=== PATIENT | female | born 1985 | race Caucasian/White ===

== ENCOUNTER → 2022-05-18 13:47 | Outpatient (CLI) | payer OTHER, SELFPAY ==
--- NOTE | ~2022-05-18 | CT_ITS ---
EXAMINATION: CT soft tissue neck w con DATE: 05/18/2022 14:14 INDICATION: Right posterior neck mass. TECHNIQUE: Computed tomography (CT) of the neck was performed with 75 mL Omnipaque-350 intravenous co ntrast. Automated exposure control and iterative reconstruction technique were employed. The dose-timothy gth product was 362.90 mGy-cm. COMPARISON: None FINDINGS: There is an aberrant right subclavian artery. There is 0% stenosis of the proximal internal carotid arteries relative to normal distal artery lumen diameters. There are nodules in the thyroid measuring up to 7 mm, likely not clinically significant. There is complete opacification of left fron kelly, ethmoid, and maxillary sinuses and near complete opacification of left sphenoid sinus. There is rightward deviation of the nasal septum. There is a 10 x 13 mm right occipital lymph node. IMPRESSION: 1. Mildly enlarged right occipital lymph node, likely reactive. Reviewed, dictated and finalized at location A.
== END ==
PROVIDERS: PCP Family Medicine; Visit Provider Surgery
DX: R22.1 Localized swelling, mass and lump, neck (principal)
CPT/HCPCS: 70491; Q9967

== ENCOUNTER → 2022-06-03 08:20 | Outpatient (CLI) | payer OTHER, SELFPAY ==
--- NOTE | ~2022-06-03 | US_ITS ---
Thyroid ultrasound. Clinical History: Thyroid nodule Findings: Real-time sonography of the thyroid gland was performed. The right lobe measures 5.3 x 1.7 x 1.6 cm. The left lobe measures 4.8 x 1.3 x 1.3 cm. The isthmus is 2 mm in AP diameter. There is a 6 mm hypoechoic nodule at the left mid to lower pole. There is an 8 mm hypoechoic nodule a t the right midpole. There is a 9 mm hypoechoic solid nodule at the right lower pole. Impression: Subcentimeter thyroid nodules, as detailed above. No dedicated follow-up required based on size crite robinson. Reviewed, dictated and finalized at location . Impression: Subcentimeter thyroid nodules, as detailed above. No dedicated follow-up requir ed based on size criteria.
== END ==
PROVIDERS: PCP Family Medicine; Visit Provider Nurse Practitioner Gerontology
DX: E04.2 Nontoxic multinodular goiter (principal)
CPT/HCPCS: 76536

== ENCOUNTER 2025-02-11 21:20 | Emergency (ER) | payer OTHER, SELFPAY ==
[2025-02-11 21:22] VITALS: BP 171/89; PULSE 81; RESP 20; TEMP 36.7; O2SAT 100
--- OUTSIDE RECORDS SUMMARY | 2025-02-11 21:23 | XMS_ITS | Clinical Summary ---
Author Organization [facility] [employer] Address [facility] [facility] [place] [address] Care Team Providers Care Insole Cementer Name Role Phone Unavailable Primary Care Provider Unavailabl e Source Comments [facility],non-owned Affiliates and Associated Physician Practices is amultiple site organization consisting of ambulatory clinics and hospital sitesin [place] and [place]. This disclosure is being madepursuant to the Care Everywhere program and may not contain all information available regarding this patient. Last updated 17.[facility] [employer] Allergies Active Allergy Reactions Criticality Noted Date Comments Sulfa Drugs Rash Low 08/19/2012 Active Problems Problem Noted Date Diagnosed Date Choroid plexus cyst of fetus 08/19/2012 Family History Medical History Relation Name Comments Cancer Mother Relation Name Status Comments Mother Social History Tobacco Use Types Packs/Day Years Used Date Smoking Tobacco: Never Assessed Comments No Sex and Gender Information Value Date Recorded Sex Assigned at Not on file Legal Sex Female 10:52 AM CDT Gender Identity Not on file Sexual Orientation Not on file Plan of Treatment Health Maintenance Due Date Last Done Comments LIPID TESTING 1985 MAMMOGRAM 1985 HIV SCREENING 01/23/2000 HEPATITIS C SCREENING 01/18/2003 DTAP/TDAP/TD VACCINES (1 - Tdap) 01/23/2004 HEPATITIS B VACCINE (1 of 3 - 19+ 3-dose series) 01/23/2004 PAP SMEAR 2006 HPV VACCINE (1 - 3-dose SCDM series) 01/23/2012 Cervical Cancer Screening 2015 PAP with HPV 2015 DEPRESSION SCREENING 03/08/2024 COVID-19 VACCINE (1 - 2024-2 6 season) 2024 INFLUENZA VACCINE (#1) 2024 ZOSTER VACCINE (1 of 2) 2035 HIB VACCINE Aged Out No longer eligi ble based on patient's age to complete this topic MENINGOCOCCAL (Group B) VACC INE SHARED DECISION-MAKING Aged Out No longer eligibl e based on patient's age to complete this topic MENINGOCOCCAL GROUPS A/C/Y/W VACCINE Aged Out No longer eligible b ased on patient's age to complete this topic PNEUMOCOCCAL VACCINE Aged Out No long er eligible based on patient's age to complete this topic
--- NOTE | 2025-02-11 22:09 | ED.DENTAL ---
HPI - Dental/Oral General Chief complaint: Dental/Oral Stated complaint: R lower jaw swelling, recent dental issue Time Seen by Provider: 02/11/25 21:30 History of Present Illness HPI Narrative: Patient is a 40 year old female who presents to the ER with right jaw pain. She reports her pain started on Wednesday as a nerve pain. Patient reports the pain became more tender on Wednesday, yesterday. Today the swelling to the right side of her face increased significantly. Patient denies any history of dental abscesses or recent antibiotics use. She denies any difficulty swallowing, mastoid tenderness, recent fevers, or difficulty breathing. Patient endorses a history of high blood pressure, prediabetes, and anxiety. Related Data Home Medications ?Medication ?Instructions ?Recorded ?Confirmed ?Last Taken ?Type fluticasone propionate 93 2 spray intranasal Q12H 04/29/22 09/22/24 Unknown History mcg/actuation breath activated aerosol (Xhance) montelukast 10 mg tablet 10 mg PO DAILY 05/21/22 09/22/24 Unknown History (Kayleigh) Allergies Allergy/AdvReac Type Severity Reaction Status Date / Time Sulfa (Sulfonamide Allergy Unknown Hives Verified 09/22/24 10:38 Antibiotics) Review of Systems Review of Systems: All systems reviewed & are unremarkable except as noted in HPI and below PMFSH Past Medical History Medical History Gestational hypertension Asthma Thyroid nodule Posterior cervical lymphadenopathy Neck mass Elevated blood pressure reading without diagnosis of hypertension Sebaceous cyst GERD (gastroesophageal reflux disease) Chronic nasal congestion Deviated septum Nocturnal cough Acid reflux Leukocytosis Dermatitis Mixed hyperlipidemia Vertigo Seasonal allergies Mild intermittent asthma Surgical History Surgical History History of tonsillectomy and adenoidectomy History of section Family History Family History Father Family history of blood dyscrasia Polycythemia vera Grandparent Malignant neoplasm of prostate Family history of malignant neoplasm of breast Family history of heart disease in male family member before age 55 Diabetes mellitus Breast cancer Carcinoma of colon Heart disease Hypertension Mother Asthma Social History Social History Social History: Smoking status: Never smoker Second hand tobacco smoke exposure: No Alcohol intake: current Alcohol use details: Occasionally maybe once per month Substance use: never Substance use type: does not use Lack of Transportation: No Lack of Food: Never True Current Housing: I Have Housing Concerned About Future Housing: No Difficulty Paying Gas/Electric Bills: No Difficulty Paying for Meds: No Currently Unemployed: No Education: Don't Know Difficulty w/ Childcare or Family Care: No Living arrangements: with family Additional living arrangements comments: pt lives with and 2 children Occupation/Education: occupation Gender identity (if verbalized by the patient): Female Sexual Orientation (if Verbalized by the Patient): Straight or Heterosexual Spiritual care concerns: No Exam Narrative: GENERAL: Well appearing, well-nourished, non-toxic, in no acute distress. HEAD: Normocephalic, atraumatic. No uvula deviation. No visible abscess inside mouth. Palpable abscess to right lower jaw. NECK: Supple. Mild right cervical lymphadenopathy. RESPIRATORY: Airway patent, respirations nonlabored. Clear to auscultation bilaterally, no rales, rhonchi, wheezing. CARDIOVASCULAR: Regular rate and rhythm without murmurs, rubs, or gallops. Peripheral pulses 2+ and equal bilaterally. ABDOMINAL: Soft, nontender, nondistended, no hepatosplenomegaly. Normoactive BS. MUSCULOSKELETAL: Moves all extremities. Strength/ROM intact without gross deformities. SKIN: Warm, dry, normal color. No rashes. NEURO: A&O X3. Speech clear. Cranial nerves II-XII intact. No ataxic movements. PSYCHIATRIC: Appropriate mood and affect. Normal interaction. Course Vital Signs Vital signs: Vital Signs Temperature 36.7 C 02/11/25 21:22 Pulse Rate 81 02/11/25 21:22 Respiratory Rate 20 02/11/25 21:22 Blood Pressure 171/89 H 02/11/25 21:22 Pulse Oximetry 100 02/11/25 21:22 Temperature 36.7 C 02/11/25 21:22 Pulse Rate 81 02/11/25 21:22 Respiratory Rate 20 02/11/25 21:22 Blood Pressure 171/89 H 02/11/25 21:22 Pulse Oximetry 100 02/11/25 21:22 MDM MDM Narrative Medical decision making narrative: Patient is a 40 year old female who presents to the ER with right jaw pain. She reports her pain started on Wednesday as a nerve pain. Patient reports the pain became more tender on Wednesday, yesterday. Today the swelling to the right side of her face increased significantly. Patient denies any history of dental abscesses or recent antibiotics use. She denies any difficulty swallowing, mastoid tenderness, recent fevers, or difficulty breathing. Patient endorses a history of high blood pressure, prediabetes, and anxiety. Patient Education/Shared MDM: Patient will be given a dose of Toradol, [place], prednisone and viscous lidocaine here in the ER to help relieve her pain. She will also be given her 1st dose of oral antibiotics. Patient strongly advised to follow-up with her dentist as soon as possible. She will be discharged home with a prescription for viscous lidocaine, Augmentin, ibuprofen 800 mg. Strict return precautions provided. Patient verbalized understanding and is in agreement with plan. Vital signs stable at time of discharge. All questions answered. Differential Diagnosis Differential Diagnosis: Dental abscess, dental caries, cracked tooth Discharge Plan Discharge Clinical Impression: Dental abscess, Toothache Patient Disposition: Home Condition: Stable Instructions: Antibiotic Form, Dental Abscess (ED) Additional Instructions: Please return to the ER with any worsening symptoms. Follow-up with your dentist as soon as possible. Take all medications as prescribed, including regularly scheduled medications. Please complete your full dose of antibiotics patient. You may take ibuprofen 800 mg and use viscous lidocaine for pain relief. Patient Language: Estonian Prescriptions: New amoxicillin-pot clavulanate 875-125 mg tablet 1 tablet PO Q12H Qty: 20 0RF ibuprofen 800 mg tablet 800 mg PO TID PRN (Reason: pain) Qty: 30 0RF ibuprofen 800 mg tablet 800 mg PO TID PRN (Reason: pain) Qty: 30 0RF lidocaine HCl [Lidocaine Viscous] 2 % solution 1 applic mucous membrane QID PRN (Reason: pain) Qty: 300 0RF No Action albuterol sulfate 90 mcg/actuation HFA aerosol inhaler 1 inh inhalation Q4H PRN (Reason: shortness of breath or wheezing) Qty: 6.7 0RF Xhance 93 mcg/actuation aerosol breath activated 2 spray intranasal Q12H Rx Instructions: into each nostril Creon 24,000-76,000 -120,000 unit capsule,delayed release(/EC) 1 cap PO TID Qty: 90 4RF Rx Instructions: administer with meals and/or snacks montelukast [Singulair] 10 mg Tablet 10 mg PO DAILY buspirone 15 mg tablet 15 mg PO QHS Qty: 90 2RF [place] 24 Fe 1 mg-20 mcg (24)/75 mg (4) tablet See Rx Instructions .ROUTE .COMPLEX Qty: 28 6RF Dose Instruction: TAKE 1 TABLET BY MOUTH EVERY DAY Rx Instructions: TAKE 1 TABLET BY MOUTH EVERY DAY metformin 500 mg tablet See Rx Instructions .ROUTE .COMPLEX Qty: 90 0RF Dose Instruction: TAKE 1 TABLET BY MOUTH THREE TIMES A DAY Rx Instructions: TAKE 1 TABLET BY MOUTH THREE TIMES A DAY Follow-up/Referrals: Maxx Nunes MD [Primary Care Provider, Family Practice] Stand Alone Forms: Work/School Release IP Time of Disposition: 22:20
[2025-02-11] MEDS: HYDROcodone/acetaminophen (*CRX) 5-325 MG TABLET 1 TAB PO (22:51)
[2025-02-11] MEDS: LIDOCAINE 2% VISC SOLN 15 ML UDC PO (22:52)
[2025-02-11] MEDS: KETOROLAC (*BKC) 60 MG/2 ML VIAL IM (22:52)
[2025-02-11 23:00] VITALS: BP 166/81; PULSE 86; RESP 18; TEMP 36.6; O2SAT 100
== END 2025-02-11 23:03 | disposition home or self-care (01) ==
PROVIDERS: Emergency Provider Registered Nurse; PCP Family Medicine
DX: K04.7 Periapical abscess without sinus (principal); I10 Essential (primary) hypertension; E78.2 Mixed hyperlipidemia; R73.03 Prediabetes; J45.20 Mild intermittent asthma, uncomplicated; K21.9 Gastro-esophageal reflux disease without esophagitis; F41.9 Anxiety disorder, unspecified; Z79.84 Long term (current) use of oral hypoglycemic drugs; Z79.899 Other long term (current) drug therapy
CPT/HCPCS: 96372; 99283; A9270; J1885; J7512